=== PATIENT | male | born 1995 | race African-American/Black ===

== ENCOUNTER 2020-09-22 18:11 | Emergency (ER) | payer OTHER ==
[~2020-09-22] VITALS: Ht 172.7 cm; Wt 68.0 kg
[2020-09-22] MEDS ORDERED: ROBAXIN-500MG ORAL (19:24)
[2020-09-22] MEDS ORDERED: IBUPROFEN600 M1 ORAL (19:24)
--- NOTE | 2020-09-22 19:24 | Emergency Room Report ---
History of Present Illness General Chief Complaint: Medical Clearance Source: Patient Present Illness HPI 24-year-old male with no known significant past medical history brought in by paramedics and [employer], handcuffed, for medical clearance. Patient reports that as he was trying to jump off the gait he twisted his right ankle today. No obvious deformity noted. Rates the pain 2 out of 10 without radiation. Has full range of motion. Denies any tingling or numbness. Patient is neurovascularly intact. No signs of blunt or penetrating trauma noted. Patient does not have any other complaints. 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 Patient History Past Medical History: see triage record Past Surgical History: unable to obtain Pertinent Family History: unable to obtain Reviewed Nursing Documentation: PMH: Agreed; PSxH: Agreed Nursing Documentation-PMH Past Medical History: No Stated History Review of Systems All Other Systems: negative except mentioned in HPI Physical Exam Vital Signs Date Time Temp Pulse Resp B/P (MAP) Pulse Ox O2 Delivery O2 Flow Rate FiO2 09/22/20 18:04 97.9 110 19 98 Room Air Sp02 EP Interpretation: reviewed, normal General Appearance: no apparent distress, alert, GCS 15, non-toxic Head: normocephalic, atraumatic Eyes: bilateral eye normal inspection, bilateral eye PERRL ENT: hearing grossly normal, normal pharynx, no angioedema, normal voice Neck: full range of motion, supple/symm/no masses Respiratory: chest non-tender, lungs clear, normal breath sounds, speaking full sentences Cardiovascular #1: regular rate, rhythm, no edema Cardiovascular #2: 2+ carotid (R), 2+ carotid (L), 2+ radial (R), 2+ radial (L), 2+ dorsalis pedis (R), 2+ dorsalis pedis (L) Gastrointestinal: soft Genitourinary: no CVA tenderness Musculoskeletal: back normal, normal range of motion, no calf tenderness, pelvis stable, no lower extremity edema, non-tender Neurologic: alert, motor strength/tone normal, oriented x3, sensory intact, responsive, speech normal Psychiatric: judgement/insight normal, memory normal, mood/affect normal, no suicidal/homicidal ideation Skin: no rash Lymphatic: no adenopathy Procedures Splinting Splinting : Consent: Verbal Location: Right ankle Pre-Made Type: MARCIO wrap Pre-Proc Neuro Vasc Exam: normal Post-Proc Neuro Vasc Exam: normal Patient Tolerated: Well Complications: None Medical Decision Making PA Attestation All my diagnosis and treatment plans were reviewed ad discussed with my supervising physician Dr. Amaya Diagnostic Impression: Primary Impression: Ankle sprain ER Course 24-year-old male with no known significant past medical history brought in by paramedics and [employer], for medical clearance. Patient reports that as he was trying to jump off the gait he twisted his right ankle today. No obvious deformity noted. Rates the pain 2 out of 10 without radiation. Has full range of motion. Denies any tingling or numbness. Patient is neurovascularly intact. No signs of blunt or penetrating trauma noted. Patient does not have any other complaints. Ddx considered but are not limited to: ankle sprain, ankle strain, ankle fracture, ankle contusion Patient was evaluated in the context of the global COVID-19 pandemic, which necessitated consideration that the patient might be at risk for infection with the SARS-COV-2 virus that causes COVID-19. Institutional protocols and algorithms that pertain to the evaluation of patients at risk for COVID-19 are in a state of rapid change based on information relieved by multiple regulatory bodies including the CDC and the federal and state organizations. These policies and algorithms were followed during the patient's care in the ED. Vital signs: are WNL, pt. is afebrile H&PE are most consistent with: right ankle sprain ORDERS: ankle x-ray, Robaxin, Motrin ED INTERVENTIONS: Marcio wrap, Motrin DISCHARGE: At this time pt. is stable for d/c to home. Will provide printed patient care instructions, and any necessary prescriptions. Care plan and follow up instructions have been discussed with the patient prior to discharge. Advised patient to follow primary care provider weapons specialist, take medication as directed, if worsening symptoms return to the emergency Other X-Ray Diagnostic Results Other X-Ray Diagnostic Results : X-Ray ordered: Right ankle # of Views/Limited Vs Complete: 3 View Indication: Pain EP Interpretation: Yes PA Xray: Interpretation reviewed, by supervising MD, and agrees with findings. Interpretation: no dislocation, no soft tissue swelling, no fractures Impression: No acute disease Electronically Signed by: Estefani Kaufman PA-C Last Vital Signs Date Time Temp Pulse Resp B/P (MAP) Pulse Ox O2 Delivery O2 Flow Rate FiO2 09/22/20 18:59 97.9 09/22/20 18:11 19 98 Room Air 09/22/20 18:08 110 Disposition: HOME, SELF-CARE Condition: Stable Scripts Ibuprofen* (MOTRIN*) 600 Mg Tablet 600 MG ORAL Q6H PRN for For Pain, #30 TAB 0 Refills Prov: Estefani Sinha 09/22/20 Methocarbamol* (ROBAXIN-500*) 500 Mg Tablet 500 MG ORAL TID PRN for For Pain, #15 TAB 0 Refills Prov: Estefani Sinha 09/22/20 Referrals: NOT CHOSEN IPA/,REFERRING (PCP) Patient Instructions: Ankle Sprain, [id number] Additional Instructions: Take medication as directed, follow primary care provider, if worsening symptoms return to the emergency room Estefani Sinha Sep 22, 2020 19:24
--- NOTE | 2020-09-23 14:57 | Diagnostic Imaging Report ---
EXAM: X-RAY XRAY Ankle Compl Min 3v R CLINICAL HISTORY: Trauma with ankle pain. COMPARISON: None FINDINGS: Total of 3 views of the right ankle were obtained. Alignment is anatomic. There is no fracture, bony lesions or erosions. Joint spaces are unremarkable. Surrounding soft tissue is normal. IMPRESSION: NO FRACTURE.
== END 2020-09-22 19:05 | disposition home or self-care (01) ==
LOC: EDBD 18:11 → EMR 18:47 → EDBD 18:47 → EMR 19:05
DX: S93.401A Sprain of unspecified ligament of right ankle, initial encounter (principal); W17.89XA Other fall from one level to another, initial encounter; Y93.39 Activity, other involving climbing, rappelling and jumping off; Y92.9 Unspecified place or not applicable
CPT/HCPCS: 99282